=== PATIENT | female | born 1950 | race Caucasian/White ===

== ENCOUNTER 2018-06-12 18:31 | Inpatient (IN) | payer MEDICARE, OTHER ==
[~2018-06-12] VITALS: Ht 177.8 cm; Wt 100.0 kg
[~2018-06-12 18:31] MED LIST: AMLO2.5T2 PO; ASPI-611 PO; EZET1TAB PO; FLUT1DIS4 INH; INSU200I SQ; LACT1CAP73 PO; LANTUS SQ; LISI-600 PO; METO-395 PO; MULT-1179 PO; NORT25CA PO; OMEG1CAP PO; SPIIN INH; SYN0.088T PO
[2018-06-12] MEDS ORDERED: morphine 4 MG/ML inj SYRINge IV ONE (19:30)
[2018-06-12] MEDS ORDERED: ondansetron/PF 4mg/2ml inj IV ONE (19:30)
[2018-06-12 19:37] LABS: BASOPHILS % (AUTO) 0 % (0-1); EOSINOPHILS # (AUTO) 0.3 X10'3 (0-0.9); EOSINOPHILS % (AUTO) 2.4 % (0-6); HEMATOCRIT 44.3 % (35.0-45.0); HEMOGLOBIN 14.3 g/dl (12.0-16.0); LYMPHOCYTES % (AUTO) 14.4 % (21-51); MEAN CORPUSCULAR HEMOGLOBIN 26.2 PG (27.0-31.0); MEAN CORPUSCULAR HGB CONC 32.2 % (33.0-36.5); MEAN CORPUSCULAR VOLUME 81.3 FL (78-98); MEAN PLATELET VOLUME 10.6 FL (7.4-10.4); MONOCYTES # (AUTO) 0.4 X10'3 (0-0.9); MONOCYTES % (AUTO) 3.1 % (2-12); NEUTROPHILS # (AUTO) 11.4 X10'3 (1.8-7.7); NEUTROPHILS % (AUTO) 80.1 % (42-75); PLATELET COUNT 318 X10'3 (140-440); RED BLOOD COUNT 5.45 X10'6 (4.20-5.60); RED CELL DISTRIBUTION WIDTH 14.9 % (11.5-14.5); WHITE BLOOD COUNT 14.2 X10'3 (4.5-11.0)
[2018-06-12 19:48] LABS: PARTIAL THROMBOPLASTIN TIME 24 SECONDS (22-32)
[2018-06-12 19:53] LABS: ALANINE AMINOTRANSFERASE 28 U/L (12-78); ALBUMIN 2.7 G/DL (3.4-5.0); ALBUMIN/GLOBULIN RATIO 0.6 (1.1-1.5); ALKALINE PHOSPHATASE 76 IU/L (46-116); ANION GAP 11 (8-16); ASPARTATE AMINO TRANSFERASE 25 U/L (10-37); BILIRUBIN,TOTAL 0.3 MG/DL (0.1-1.0); BLOOD UREA NITROGEN 13 MG/DL (7-18); BUN/CREATININE RATIO 16.3 (6.6-38.0); CALCIUM 8.9 MG/DL (8.5-10.1); CHLORIDE 101 MMOL/L (99-107); GLUCOSE 127 MG/DL (70-104); POTASSIUM 3.4 MMOL/L (3.5-5.1); SODIUM 143 MMOL/L (135-145); TOTAL CARBON DIOXIDE 30.6 MMOL/L (24-32); TOTAL PROTEIN 6.9 G/DL (6.4-8.2); eGFR 71 ML/MIN
[2018-06-12] MEDS ORDERED: potassium Cl 20 mEq SR tablet PO PRN (20:40)
[2018-06-12] MEDS ORDERED: HYDROcodone/acetaminophen 5mg/325mg tablet PO PRN (20:40)
[2018-06-12] MEDS ORDERED: dextrose ORAL solution 15 GM/59 ML bottle PO PRN ×2 (20:40)
[2018-06-12] MEDS ORDERED: morphine 10mg/ml inj. IV PRN (20:40)
[2018-06-12] MEDS ORDERED: glucagon, human recombinant 1mg kit SUBCUT PRN (20:40)
[2018-06-12] MEDS ORDERED: dextrose 50%-water 50ml dispensing syringe IV PRN ×2 (20:40)
[2018-06-12] MEDS ORDERED: ondansetron/PF 4mg/2ml inj IV PRN (20:40)
[2018-06-12] MEDS ORDERED: morphine 2 MG/ML inj. syringe IV PRN (20:40)
[2018-06-12] MEDS ORDERED: acetaminophen 325mg tablet PO PRN ×2 (20:40)
[2018-06-12] MEDS ORDERED: MESSAGE TO PHARMACY PO ONE (20:40)
[2018-06-12] MEDS ORDERED: magnesium hydroxide 30ml (MOM) UD suspension PO PRN (20:40)
[2018-06-12] MEDS ORDERED: mag hydrox/Alum hydrox/simeth 30ml oral suspension PO PRN (20:40)
[2018-06-12] MEDS ORDERED: potassium Cl 40MEQ/NS 500ml 500 ML IV PRN ×2 (20:40)
[2018-06-12 20:55] LABS: CLARITY,URINE SLIGHTLY CLOUDY (Clear); COLOR,URINE YELLOW (Yellow); GLUCOSE, URINE NEGATIVE (Neg); KETONES,URINE NEGATIVE (Neg); LEUKOCYTE ESTERASE ,URINE NEGATIVE (Neg); NITRITES, URINE POSITIVE (Neg); OCCULT BLOOD,URINE NEGATIVE (Neg); PROTEIN,URINE NEGATIVE (Neg); UROBILINOGEN,URINE 0.2 E.U/dL (0.2-1.0)
[2018-06-12 21:00] LABS: UA COLLECTION TYPE FOLEY CATH
[2018-06-12] MEDS ORDERED: temazepam 15mg capsule PO PRN (21:00)
[2018-06-12 21:05] LABS: BACTERIA,URINE 3+ /HPF (Neg); RBC,URINE NONE SEEN /HPF (0-2)
[2018-06-12 21:06] LABS: SQUAMOUS EPITHELIAL CELL,UR FEW /LPF (FEW); WBC CLUMPS,URINE FEW /HPF (NEGATIVE)
[2018-06-12 21:07] LABS: HEMOGLOBIN A1C 6.4 % (4.5-6.2)
[2018-06-12 21:22] LABS: LARGE PLATELETS FEW; PLATELET ESTIMATE NORMAL
[2018-06-12 22:00] VITALS: BP 148/78
[2018-06-12] MEDS: ipratropium 0.5 MG/2.5ML nebule IH SCH (22:20)
[2018-06-12] MEDS: insulin glargine (Lantus) pen - multi-dose SQ SCH (22:44)
[2018-06-12] MEDS: nortriptyline 25mg capsule PO SCH (23:00)
[2018-06-12] MEDS: normal saline 1000ml 1,000 ML IV SCH (23:16)
[2018-06-13] MEDS: HYDROcodone/acetaminophen 10/325mg tab PO PRN ×5 (00:55→22:25)
[2018-06-13] MEDS: ipratropium 0.5 MG/2.5ML nebule IH SCH ×4 (02:26→20:18)
[2018-06-13 05:33] LABS: BASOPHILS # (AUTO) 0.1 X10'3 (0-0.2); BASOPHILS % (AUTO) 0.4 % (0-1); EOSINOPHILS # (AUTO) 0.4 X10'3 (0-0.9); EOSINOPHILS % (AUTO) 2.5 % (0-6); HEMATOCRIT 44.2 % (35.0-45.0); HEMOGLOBIN 14.1 g/dl (12.0-16.0); LYMPHOCYTES # (AUTO) 2.4 X10'3 (1.1-4.8); LYMPHOCYTES % (AUTO) 14.4 % (21-51); MEAN CORPUSCULAR HEMOGLOBIN 25.9 PG (27.0-31.0); MEAN CORPUSCULAR HGB CONC 31.9 % (33.0-36.5); MEAN CORPUSCULAR VOLUME 81.3 FL (78-98); MEAN PLATELET VOLUME 10.8 FL (7.4-10.4); MONOCYTES # (AUTO) 0.7 X10'3 (0-0.9); MONOCYTES % (AUTO) 4.2 % (2-12); NEUTROPHILS # (AUTO) 13.2 X10'3 (1.8-7.7); NEUTROPHILS % (AUTO) 78.5 % (42-75); PLATELET COUNT 320 X10'3 (140-440); RED BLOOD COUNT 5.44 X10'6 (4.20-5.60); RED CELL DISTRIBUTION WIDTH 14.9 % (11.5-14.5); WHITE BLOOD COUNT 16.8 X10'3 (4.5-11.0)
[2018-06-13 05:37] LABS: ALBUMIN 2.6 G/DL (3.4-5.0); ANION GAP 9 (8-16); BLOOD UREA NITROGEN 9 MG/DL (7-18); BUN/CREATININE RATIO 12.5 (6.6-38.0); CALCIUM 8.7 MG/DL (8.5-10.1); CHLORIDE 100 MMOL/L (99-107); CREATININE 0.72 MG/DL (0.40-0.90); GLUCOSE 173 MG/DL (70-104); POTASSIUM 3.4 MMOL/L (3.5-5.1); SODIUM 141 MMOL/L (135-145); TOTAL CARBON DIOXIDE 32.1 MMOL/L (24-32); eGFR 81 ML/MIN
[2018-06-13] MEDS: normal saline 1000ml 1,000 ML IV SCH ×2 (06:39→17:22)
[2018-06-13] MEDS: albuterol 2.5 MG/3 ML nebule NEB SCH ×4 (06:45→20:19)
[2018-06-13 07:09] VITALS: BP 149/81
[2018-06-13] MEDS: levoTHYROXINE 175mcg tablet PO SCH ×2 (07:24→08:05)
[2018-06-13] MEDS ORDERED: lisinopril 20mg tablet PO SCH (08:00)
[2018-06-13] MEDS ORDERED: amLODIPine 2.5mg tablet PO SCH (08:00)
[2018-06-13] MEDS ORDERED: metoprolol succinate 25mg (24-HOUR) SR. Tablet PO SCH (08:00)
[2018-06-13] MEDS: BUDESONIDE 0.25 MG/2 ML AMPUL.NEB IH SCH ×2 (08:00→20:18)
[2018-06-13] MEDS ORDERED: non-formulary drug (Fluticasone/Salmeterol (Advair 250-50 Diskus) 1 PUFFS) INH SCH (08:00)
[2018-06-13] MEDS ORDERED: levoTHYROXINE 88mcg tablet PO SCH (08:00)
[2018-06-13] MEDS: amLODIPine 5mg tablet PO SCH (08:04)
[2018-06-13] MEDS: omega-3 acid ethyl esters 1GM capsule PO SCH (08:04)
[2018-06-13] MEDS: multivitamins, therapeutics tablet PO SCH (08:05)
[2018-06-13] MEDS: HYDROchlorothiazide 25mg tablet PO SCH (08:05)
[2018-06-13] MEDS: metoprolol succinate 25mg (24-HOUR) SR. Tablet PO SCH (08:05)
[2018-06-13] MEDS: aspirin 81mg tab.chew PO SCH (08:05)
[2018-06-13] MEDS: lactobacillus rhamnosus 10,000 MMU CELLS/CAPSULE PO SCH (08:05)
[2018-06-13] MEDS: K and/or MAG REPLACEMENT MC SCH (08:10)
[2018-06-13] MEDS: potassium Cl 20 mEq SR tablet PO PRN ×3 (08:11→20:49)
[2018-06-13] MEDS ORDERED: pneumococcal 23-VAL P-sac vacc 25 mcg/0.5ml vial IMVAC ONE (10:00)
[2018-06-13] MEDS: insulin Lispro (HumaLOG) vial - multi-dose SQ SCH ×2 (10:29→18:33)
[2018-06-13] MEDS ORDERED: levoFLOXACIN-Levaquin 750MG/D5 150 ML IV STA (13:25)
[2018-06-13] MEDS: heparin, porcine 5000 units/ml vial SQ SCH (16:00)
[2018-06-13 18:00] VITALS: BP 147/78
[2018-06-13] MEDS: nortriptyline 25mg capsule PO SCH (20:49)
[2018-06-13] MEDS: insulin glargine (Lantus) pen - multi-dose SQ SCH (20:52)
[2018-06-13 22:00] VITALS: BP 150/64
[2018-06-14] VITALS (19 sets, daily range): BP systolic 98–161; BP diastolic 46–77
[2018-06-14] MEDS: ipratropium 0.5 MG/2.5ML nebule IH SCH (02:50)
[2018-06-14] MEDS: HYDROcodone/acetaminophen 10/325mg tab PO PRN ×2 (03:04→12:10)
[2018-06-14] MEDS: normal saline 1000ml 1,000 ML IV SCH ×3 (03:04→23:18)
[2018-06-14 07:06] LABS: ALBUMIN 2.3 G/DL (3.4-5.0); ANION GAP 14 (8-16); BLOOD UREA NITROGEN 8 MG/DL (7-18); BUN/CREATININE RATIO 12.5 (6.6-38.0); CALCIUM 8.3 MG/DL (8.5-10.1); CHLORIDE 99 MMOL/L (99-107); CREATININE 0.64 MG/DL (0.40-0.90); GLUCOSE 215 MG/DL (70-104); SODIUM 139 MMOL/L (135-145); TOTAL CARBON DIOXIDE 26.3 MMOL/L (24-32); eGFR > 90 ML/MIN
[2018-06-14 07:15] LABS: BASOPHILS % (AUTO) 0.2 % (0-1); EOSINOPHILS # (AUTO) 0.4 X10'3 (0-0.9); EOSINOPHILS % (AUTO) 2.6 % (0-6); HEMATOCRIT 44.8 % (35.0-45.0); HEMOGLOBIN 14.5 g/dl (12.0-16.0); LYMPHOCYTES # (AUTO) 2.1 X10'3 (1.1-4.8); MEAN CORPUSCULAR HEMOGLOBIN 26.3 PG (27.0-31.0); MEAN CORPUSCULAR HGB CONC 32.3 % (33.0-36.5); MEAN CORPUSCULAR VOLUME 81.3 FL (78-98); MEAN PLATELET VOLUME 11.6 FL (7.4-10.4); MONOCYTES % (AUTO) 6.3 % (2-12); NEUTROPHILS # (AUTO) 12.8 X10'3 (1.8-7.7); NEUTROPHILS % (AUTO) 77.9 % (42-75); PLATELET COUNT 294 X10'3 (140-440); RED BLOOD COUNT 5.51 X10'6 (4.20-5.60); RED CELL DISTRIBUTION WIDTH 14.8 % (11.5-14.5); WHITE BLOOD COUNT 16.5 X10'3 (4.5-11.0)
[2018-06-14] MEDS: heparin, porcine 5000 units/ml vial SQ SCH ×3 (07:49→16:00)
[2018-06-14] MEDS: K and/or MAG REPLACEMENT MC SCH (08:00)
[2018-06-14] MEDS: omega-3 acid ethyl esters 1GM capsule PO SCH (08:00)
[2018-06-14] MEDS: multivitamins, therapeutics tablet PO SCH (08:00)
[2018-06-14] MEDS: lactobacillus rhamnosus 10,000 MMU CELLS/CAPSULE PO SCH (08:00)
[2018-06-14] MEDS: aspirin 81mg tab.chew PO SCH (08:00)
[2018-06-14 08:03] LABS: LARGE PLATELETS FEW; PLATELET ESTIMATE NORMAL
[2018-06-14] MEDS ORDERED: albuterol 2.5 MG/3 ML nebule ONE (08:21)
[2018-06-14] MEDS: BUDESONIDE 0.25 MG/2 ML AMPUL.NEB IH SCH ×2 (08:22→19:56)
[2018-06-14] MEDS: amLODIPine 5mg tablet PO SCH (08:49)
[2018-06-14] MEDS: HYDROchlorothiazide 25mg tablet PO SCH (08:49)
[2018-06-14] MEDS: levoTHYROXINE 175mcg tablet PO SCH (08:50)
[2018-06-14] MEDS: metoprolol succinate 25mg (24-HOUR) SR. Tablet PO SCH (08:50)
[2018-06-14] MEDS: insulin Lispro (HumaLOG) vial - multi-dose SQ SCH ×3 (09:09→19:22)
[2018-06-14] MEDS ORDERED: ringers solution, lacted 1,000 ML IV SCH (11:34)
[2018-06-14] MEDS ORDERED: ondansetron/PF 4mg/2ml inj IV PRN ×2 (11:35→18:05)
[2018-06-14] MEDS ORDERED: proCHLORperazine 10 MG/2 ml inj IV PRN (11:35)
[2018-06-14] MEDS ORDERED: meperidine/PF 25mg/ml syringe IV PRN ×3 (11:35)
[2018-06-14] MEDS ORDERED: morphine 4 MG/ML inj SYRINge IV PRN ×2 (11:35)
[2018-06-14] MEDS ORDERED: ceFAZolin 1GM/D5W- ADD-VANTAGE 50 ML IV ONE (12:00)
[2018-06-14] MEDS: levoFLOXACIN 750MG TABLET PO SCH (12:10)
[2018-06-14] MEDS: ipratropium/albuterol 3ml nebule NEB SCH ×3 (12:34→19:52)
[2018-06-14] MEDS ORDERED: vancomycin 1,000mg inj ONE (13:44)
[2018-06-14] MEDS ORDERED: insulin regular, human 10 units/0.1 ml syringe IV ONE (16:25)
[2018-06-14] MEDS ORDERED: BUPIVAcaine/dex-water/PF 7.5 mg/ml 2ml ampul ONE (16:27)
[2018-06-14] MEDS ORDERED: MIDAZolam 5mg/5ml vial ONE (16:29)
[2018-06-14] MEDS ORDERED: fentaNYL/PF 50MCG/1 ML 2ML syringe ONE (16:29)
[2018-06-14] MEDS ORDERED: morphine /PF 1mg/ml 10ml inj. ONE (16:30)
[2018-06-14] MEDS ORDERED: propofol inj 20 ML IV ONE (16:59)
[2018-06-14] MEDS ORDERED: naloxone 2mg/2ml inj 2 MG in normal saline 500ml IV soln 500 ML IV PRN (18:04)
[2018-06-14] MEDS ORDERED: diphenhydrAMINE 50 mg/ml inj IV PRN (18:05)
[2018-06-14] MEDS: nortriptyline 25mg capsule PO SCH (20:52)
[2018-06-14] MEDS: insulin glargine (Lantus) pen - multi-dose SQ SCH (21:05)
[2018-06-15] VITALS (7 sets, daily range): BP systolic 105–133; BP diastolic 53–72
[2018-06-15] MEDS: cefazolin/dext.iso 2gm/100ml 100 ML IV SCH ×3 (00:16→16:40)
[2018-06-15] MEDS: heparin, porcine 5000 units/ml vial SQ SCH ×3 (00:17→16:42)
[2018-06-15] MEDS: HYDROcodone/acetaminophen 10/325mg tab PO PRN ×3 (05:34→20:42)
[2018-06-15 06:22] LABS: BASOPHILS # (AUTO) 0.2 X10'3 (0-0.2); BASOPHILS % (AUTO) 1.2 % (0-1); EOSINOPHILS # (AUTO) 0.3 X10'3 (0-0.9); EOSINOPHILS % (AUTO) 1.8 % (0-6); HEMOGLOBIN 13.1 g/dl (12.0-16.0); LYMPHOCYTES # (AUTO) 1.8 X10'3 (1.1-4.8); LYMPHOCYTES % (AUTO) 10.4 % (21-51); MEAN CORPUSCULAR HGB CONC 32.1 % (33.0-36.5); MEAN CORPUSCULAR VOLUME 81.1 FL (78-98); MEAN PLATELET VOLUME 10.7 FL (7.4-10.4); MONOCYTES % (AUTO) 5.8 % (2-12); NEUTROPHILS # (AUTO) 13.6 X10'3 (1.8-7.7); NEUTROPHILS % (AUTO) 80.8 % (42-75); PLATELET COUNT 259 X10'3 (140-440); RED BLOOD COUNT 5.05 X10'6 (4.20-5.60); RED CELL DISTRIBUTION WIDTH 14.8 % (11.5-14.5); WHITE BLOOD COUNT 16.8 X10'3 (4.5-11.0)
[2018-06-15 06:28] LABS: ALBUMIN 1.9 G/DL (3.4-5.0); ANION GAP 11 (8-16); BLOOD UREA NITROGEN 10 MG/DL (7-18); BUN/CREATININE RATIO 16.1 (6.6-38.0); CALCIUM 7.8 MG/DL (8.5-10.1); CHLORIDE 101 MMOL/L (99-107); CREATININE 0.62 MG/DL (0.40-0.90); GLUCOSE 162 MG/DL (70-104); POTASSIUM 3.5 MMOL/L (3.5-5.1); SODIUM 137 MMOL/L (135-145); TOTAL CARBON DIOXIDE 25.5 MMOL/L (24-32); eGFR > 90 ML/MIN
[2018-06-15 06:54] LABS: PLATELET ESTIMATE NORMAL
[2018-06-15 06:55] LABS: LARGE PLATELETS FEW
[2018-06-15] MEDS: omega-3 acid ethyl esters 1GM capsule PO SCH (07:51)
[2018-06-15] MEDS: aspirin 81mg tab.chew PO SCH (07:51)
[2018-06-15] MEDS: lactobacillus rhamnosus 10,000 MMU CELLS/CAPSULE PO SCH (07:51)
[2018-06-15] MEDS: levoTHYROXINE 175mcg tablet PO SCH (07:51)
[2018-06-15] MEDS: multivitamins, therapeutics tablet PO SCH (07:51)
[2018-06-15] MEDS: HYDROchlorothiazide 25mg tablet PO SCH (07:51)
[2018-06-15] MEDS: amLODIPine 5mg tablet PO SCH (07:51)
[2018-06-15] MEDS: metoprolol succinate 25mg (24-HOUR) SR. Tablet PO SCH (07:52)
[2018-06-15] MEDS: K and/or MAG REPLACEMENT MC SCH (08:06)
[2018-06-15] MEDS: ipratropium/albuterol 3ml nebule NEB SCH ×4 (08:14→21:00)
[2018-06-15] MEDS: BUDESONIDE 0.25 MG/2 ML AMPUL.NEB IH SCH ×2 (08:14→21:00)
[2018-06-15] MEDS: insulin Lispro (HumaLOG) vial - multi-dose SQ SCH ×3 (08:46→19:00)
[2018-06-15] MEDS: levoFLOXACIN 750MG TABLET PO SCH (10:47)
[2018-06-15] MEDS: lactose-reduced food (Ensure High Protein) 237ml bottle PO SCH ×2 (12:54→18:00)
[2018-06-15] MEDS: normal saline 1000ml 1,000 ML IV SCH ×2 (16:37→18:39)
[2018-06-15] MEDS: nortriptyline 25mg capsule PO SCH (20:42)
[2018-06-15] MEDS: insulin glargine (Lantus) pen - multi-dose SQ SCH (21:27)
[2018-06-16] MEDS: cefazolin/dext.iso 2gm/100ml 100 ML IV SCH ×2 (00:02→08:02)
[2018-06-16] MEDS: heparin, porcine 5000 units/ml vial SQ SCH ×2 (00:03→08:01)
[2018-06-16] MEDS: normal saline 1000ml 1,000 ML IV SCH ×2 (02:00→15:11)
[2018-06-16 05:00] VITALS: BP 120/63
[2018-06-16 05:46] LABS: ALBUMIN 1.6 G/DL (3.4-5.0); ANION GAP 10 (8-16); BLOOD UREA NITROGEN 11 MG/DL (7-18); BUN/CREATININE RATIO 15.7 (6.6-38.0); CALCIUM 8.4 MG/DL (8.5-10.1); CHLORIDE 101 MMOL/L (99-107); GLUCOSE 79 MG/DL (70-104); SODIUM 138 MMOL/L (135-145); TOTAL CARBON DIOXIDE 26.7 MMOL/L (24-32); eGFR 83 ML/MIN
[2018-06-16] MEDS: HYDROcodone/acetaminophen 10/325mg tab PO PRN (05:50)
[2018-06-16 06:02] LABS: HEMATOCRIT 38.4 % (35.0-45.0); HEMOGLOBIN 12.9 g/dl (12.0-16.0); MEAN CORPUSCULAR HEMOGLOBIN 27.1 PG (27.0-31.0); MEAN CORPUSCULAR VOLUME 80.6 FL (78-98); RED BLOOD COUNT 4.77 X10'6 (4.20-5.60); WHITE BLOOD COUNT 19.6 X10'3 (4.5-11.0)
[2018-06-16 06:03] LABS: BASOPHILS % (AUTO) 1.2 % (0-1); EOSINOPHILS % (AUTO) 0.7 % (0-6); LYMPHOCYTES % (AUTO) 10.1 % (21-51); MEAN CORPUSCULAR HGB CONC 33.7 % (33.0-36.5); MEAN PLATELET VOLUME 11.7 FL (7.4-10.4); MONOCYTES % (AUTO) 6.4 % (2-12); NEUTROPHILS % (AUTO) 81.6 % (42-75); PLATELET COUNT 247 X10'3 (140-440); RED CELL DISTRIBUTION WIDTH 13.6 % (11.5-14.5)
[2018-06-16 06:04] LABS: BASOPHILS # (AUTO) 0.2 X10'3 (0-0.2); EOSINOPHILS # (AUTO) 0.1 X10'3 (0-0.9); MONOCYTES # (AUTO) 1.3 X10'3 (0-0.9)
[2018-06-16 06:30] LABS: POTASSIUM 2.9 MMOL/L (3.5-5.1)
[2018-06-16] MEDS ORDERED: potassium Cl 40MEQ/NS 500ml 500 ML IV PRN ×2 (06:45)
[2018-06-16] MEDS ORDERED: potassium Cl 20 mEq SR tablet PO PRN (06:45)
[2018-06-16] MEDS: BUDESONIDE 0.25 MG/2 ML AMPUL.NEB IH SCH (07:23)
[2018-06-16] MEDS: ipratropium/albuterol 3ml nebule NEB SCH ×3 (07:24→16:02)
[2018-06-16 07:30] VITALS: BP 127/69
[2018-06-16 07:35] LABS: MAGNESIUM 1.6 MG/DL (1.5-2.4)
[2018-06-16] MEDS ORDERED: lactobacillus rhamnosus 10,000 MMU CELLS/CAPSULE PO SCH (07:53)
[2018-06-16] MEDS: aspirin 81mg tab.chew PO SCH (07:59)
[2018-06-16] MEDS: omega-3 acid ethyl esters 1GM capsule PO SCH (07:59)
[2018-06-16] MEDS: HYDROchlorothiazide 25mg tablet PO SCH (07:59)
[2018-06-16] MEDS: K and/or MAG REPLACEMENT MC SCH (08:00)
[2018-06-16] MEDS: lactose-reduced food (Ensure High Protein) 237ml bottle PO SCH ×2 (08:00→13:33)
[2018-06-16] MEDS: levoTHYROXINE 175mcg tablet PO SCH (08:00)
[2018-06-16] MEDS: amLODIPine 5mg tablet PO SCH (08:00)
[2018-06-16] MEDS: metoprolol succinate 25mg (24-HOUR) SR. Tablet PO SCH (08:00)
[2018-06-16] MEDS: multivitamins, therapeutics tablet PO SCH (08:00)
[2018-06-16] MEDS: potassium Cl 20 mEq SR tablet PO PRN ×2 (08:02→11:57)
[2018-06-16] MEDS: insulin Lispro (HumaLOG) vial - multi-dose SQ SCH ×2 (09:00→13:39)
[2018-06-16 10:00] VITALS: BP 118/49
[2018-06-16 11:06] VITALS: BP 122/52
[2018-06-16] MEDS: levoFLOXACIN 750MG TABLET PO SCH (11:23)
[2018-06-16] MEDS ORDERED: LEVO750T46 PO (13:03)
[2018-06-16] MEDS ORDERED: METO-395 PO (13:03)
[2018-06-16] MEDS ORDERED: [UNRECOGNIZED DRUG - CODE] PO (13:03)
== END 2018-06-16 16:20 | DRG 470 ==
LOC: ER 18:31 → ED HOLD 20:39 → ORTHO 4S 22:00
PROVIDERS: ADMIT Hospitalist; ATTEND Family Medicine
PROC: 0SRS01A Replacement of Left Hip Joint, Femoral Surface with Metal Synthetic Substitute, Uncemented, Open Approach (ICD-10-PCS; principal; 2018-06-14 16:12)
DX: S72.012A Unspecified intracapsular fracture of left femur, initial encounter for closed fracture (principal); N39.0 Urinary tract infection, site not specified; E44.1 Mild protein-calorie malnutrition; W01.0XXA Fall on same level from slipping, tripping and stumbling without subsequent striking against object, initial encounter; E87.6 Hypokalemia; I11.9 Hypertensive heart disease without heart failure; E11.9 Type 2 diabetes mellitus without complications; K21.9 Gastro-esophageal reflux disease without esophagitis; B96.20 Unspecified Escherichia coli [E. coli] as the cause of diseases classified elsewhere; E03.9 Hypothyroidism, unspecified; J44.9 Chronic obstructive pulmonary disease, unspecified; Z82.3 Family history of stroke; Z82.5 Family history of asthma and other chronic lower respiratory diseases; Z83.3 Family history of diabetes mellitus; Z87.891 Personal history of nicotine dependence; Z23 Encounter for immunization; Z79.4 Long term (current) use of insulin; Y93.89 Activity, other specified; Y92.090 Kitchen in other non-institutional residence as the place of occurrence of the external cause; Y99.8 Other external cause status; Z88.1 Allergy status to other antibiotic agents; Z98.51 Tubal ligation status; Z68.31 Body mass index [BMI] 31.0-31.9, adult; Z79.899 Other long term (current) drug therapy; Z79.82 Long term (current) use of aspirin
CPT/HCPCS: 36415; 70450; 71045; 72170; 73502; 80048; 80053; 81001; 82948; 83036; 83735; 84443; 84484; 85025; 85610; 85730; 86885; 86900; 86901; 87070; 87077; 87088; 87186; 93005; 93306; 94640; 94760; 96374; 96375; 97110; 97116; 97161; 97530; 99285; A4315; A6455; A7000; C1776; J0690; J1644; J1815; J1956; J2250; J2270; J2274; J2405; J2704; J3010; J3370; J3490; J7030; J7120

== ENCOUNTER 2023-03-09 12:41 | Day surgery (SDC) | payer MEDICARE, OTHER ==
[2023-03-05 13:18] LABS: BASOPHILS # (AUTO) 0.1 X10'3 (0-0.2); BASOPHILS % (AUTO) 0.8 % (0-1); EOSINOPHILS # (AUTO) 0.2 X10'3 (0-0.9); EOSINOPHILS % (AUTO) 1.9 % (0-6); HEMATOCRIT 43.8 % (35.0-45.0); HEMOGLOBIN 14.2 g/dl (12.0-16.0); LYMPHOCYTES # (AUTO) 2.2 X10'3 (1.1-4.8); LYMPHOCYTES % (AUTO) 18.1 % (21-51); MEAN CORPUSCULAR HGB CONC 32.5 g/dL (33.0-36.5); MONOCYTES # (AUTO) 0.9 X10'3 (0-0.9); MONOCYTES % (AUTO) 7.4 % (2-12); NEUTROPHILS # (AUTO) 8.6 X10'3 (1.8-7.7); NEUTROPHILS % (AUTO) 71.8 % (42-75); PLATELET COUNT 299 X10'3 (140-440); RED BLOOD COUNT 5.28 X10'6 (4.20-5.60); RED CELL DISTRIBUTION WIDTH 15.1 % (11.5-14.5); WHITE BLOOD COUNT 11.9 X10'3 (4.5-11.0)
[2023-03-05 13:29] LABS: ALBUMIN 3.2 G/DL (3.4-5.0); ANION GAP 13 (8-16); BLOOD UREA NITROGEN 18 MG/DL (7-18); BUN/CREATININE RATIO 17.8 (10.0-20.0); CALCIUM 9.2 MG/DL (8.5-10.1); CHLORIDE 101 MMOL/L (99-107); CREATININE 1.01 MG/DL (0.40-0.90); GLUCOSE 258 MG/DL (70-104); POTASSIUM 3.6 MMOL/L (3.5-5.1); SODIUM 143 MMOL/L (135-145); TOTAL CARBON DIOXIDE 29.1 MMOL/L (24-32); eGFR 54 ML/MIN
[2023-03-05 13:31] LABS: APTT 29 SECONDS (22-32)
[2023-03-09] VITALS (16 sets, daily range): BP systolic 108–170; BP diastolic 54–99
[~2023-03-09] VITALS: Ht 177.8 cm; Wt 96.8 kg
[~2023-03-09 12:41] MED LIST changes: +ALB0.5UD IH; -AMLO2.5T2 PO; -ASPI-611 PO; +ASPI81TA52 PO; +EZET-82 PO; -EZET1TAB PO; +FEBU40TA PO; +HYDR25TA5 PO; -LISI-600 PO; +LISI20TA28 PO; -METO-395 PO; +METO50TA7 PO; +NABU-139 PO; -NORT25CA PO; +NORT50CA5 PO; -OMEG1CAP PO; +OMEG1CAP61 PO
[2023-03-09] MEDS ORDERED: normal saline 1000ml 1,000 ML IV SCH (13:00)
[2023-03-09] MEDS ORDERED: MIDAZolam 1mg/ml 10ml vial IV ONE (13:00)
[2023-03-09] MEDS ORDERED: fentaNYL/PF 50MCG/1 ML 2ML syringe IV ONE (13:00)
[2023-03-09] MEDS ORDERED: POTA8TAB69 PO (14:22)
[2023-03-09] MEDS ORDERED: EZET10TA6 PO (14:22)
[2023-03-09] MEDS ORDERED: OMEP20CA16 PO (14:22)
[2023-03-09] MEDS ORDERED: LEVO75TA7 PO (14:22)
[2023-03-09] MEDS ORDERED: AMLO10TA13 PO (14:22)
[2023-03-09] MEDS ORDERED: ATOR20TA66 PO (14:22)
[2023-03-09] MEDS ORDERED: LOSA1TAB36 PO (14:22)
[2023-03-09] MEDS ORDERED: GLIP5TAB13 PO (14:22)
== END 2023-03-09 15:35 | disposition home or self-care (01) ==
LOC: SSTAY O 12:41
PROVIDERS: ATTEND Student in an Organized Health Care Education/Training Program
DX: I48.91 Unspecified atrial fibrillation (principal); I10 Essential (primary) hypertension; E78.5 Hyperlipidemia, unspecified; J44.9 Chronic obstructive pulmonary disease, unspecified; E11.9 Type 2 diabetes mellitus without complications; E03.9 Hypothyroidism, unspecified; Z79.899 Other long term (current) drug therapy; Z88.1 Allergy status to other antibiotic agents; Z79.84 Long term (current) use of oral hypoglycemic drugs
CPT/HCPCS: 36415; 80048; 82948; 85025; 85610; 85730; 92960; 93005; J7030; A4620

== ENCOUNTER 2023-07-20 20:50 | Emergency (ER) | payer MEDICARE, OTHER ==
[~2023-07-20] VITALS: Ht 177.8 cm; Wt 100.0 kg
[~2023-07-20 20:50] MED LIST changes: +AMLO10TA13 PO; +ATOR20TA66 PO; -EZET-82 PO; +EZET10TA6 PO; -FLUT1DIS4 INH; +GLIP5TAB13 PO; -HYDR25TA5 PO; +LEVO75TA7 PO; +LOSA1TAB36 PO; +OMEP20CA16 PO; +POTA8TAB69 PO; -SPIIN INH; -SYN0.088T PO
[2023-07-20 21:55] LABS: BASOPHILS # (AUTO) 0.1 X10'3 (0-0.2); BASOPHILS % (AUTO) 0.8 % (0-1); EOSINOPHILS # (AUTO) 0.1 X10'3 (0-0.9); EOSINOPHILS % (AUTO) 0.8 % (0-6); HEMATOCRIT 43.3 % (35.0-45.0); HEMOGLOBIN 14.1 g/dl (12.0-16.0); LYMPHOCYTES # (AUTO) 1.8 X10'3 (1.1-4.8); MEAN CORPUSCULAR HEMOGLOBIN 26.5 PG (27.0-31.0); MEAN CORPUSCULAR HGB CONC 32.5 g/dL (33.0-36.5); MEAN CORPUSCULAR VOLUME 81.5 FL (78-98); MEAN PLATELET VOLUME 10.3 FL (7.4-10.4); MONOCYTES # (AUTO) 1.1 X10'3 (0-0.9); MONOCYTES % (AUTO) 9.1 % (2-12); NEUTROPHILS # (AUTO) 8.7 X10'3 (1.8-7.7); NEUTROPHILS % (AUTO) 74.3 % (42-75); PLATELET COUNT 286 X10'3 (140-440); RED BLOOD COUNT 5.31 X10'6 (4.20-5.60); RED CELL DISTRIBUTION WIDTH 14.5 % (11.5-14.5); WHITE BLOOD COUNT 11.7 X10'3 (4.5-11.0)
[2023-07-20 22:14] LABS: ALANINE AMINOTRANSFERASE 19 U/L (12-78); ALBUMIN 3.2 G/DL (3.4-5.0); ALBUMIN/GLOBULIN RATIO 0.8 (1.1-1.5); ALKALINE PHOSPHATASE 105 IU/L (46-116); ANION GAP 7 (8-16); ASPARTATE AMINO TRANSFERASE 17 U/L (10-37); BILIRUBIN,TOTAL 0.7 MG/DL (0.1-1.0); BLOOD UREA NITROGEN 12 MG/DL (7-18); BUN/CREATININE RATIO 12.8 (10.0-20.0); CALCIUM 9.2 MG/DL (8.5-10.1); CHLORIDE 95 MMOL/L (99-107); CREATININE 0.94 MG/DL (0.40-0.90); LIPASE 33 U/L (16-77); POTASSIUM 3.4 MMOL/L (3.5-5.1); SODIUM 134 MMOL/L (135-145); TOTAL CARBON DIOXIDE 31.6 MMOL/L (24-32); TOTAL PROTEIN 7.4 G/DL (6.4-8.2); eCRCL 58 ML/MIN; eGFR 58 ML/MIN
[2023-07-20 22:35] LABS: GLUCOSE 401 MG/DL (70-104)
[2023-07-20] MEDS ORDERED: furosemide 40mg/4ml inj IV ONE (22:35)
[2023-07-20] MEDS ORDERED: methylPREDNISolone sod succ 125mg/2ml vial IV ONE (22:35)
[2023-07-20] MEDS ORDERED: albuterol 2.5 MG/3 ML nebule NEB ONE (22:35)
[2023-07-20] MEDS ORDERED: azithromycin/NS 500mg/250ml 250 ML IV ONE (22:35)
[2023-07-20] MEDS ORDERED: CefTRIAXone 2gm/D5W 50ml BAG 50 ML IV ONE (22:35)
[2023-07-20 23:01] VITALS: PULSE 62; RESP 14; O2SAT 100
[2023-07-20 23:11] VITALS: PULSE 59; RESP 14; O2SAT 100
[2023-07-21] MEDS ORDERED: insulin Lispro (HumaLOG) vial - multi-dose SQ ONE (00:20)
[2023-07-21] MEDS ORDERED: PRED20TA PO (01:09)
[2023-07-21] MEDS ORDERED: AZI25OT PO ×2 (01:09)
[2023-07-21] MEDS ORDERED: ALBU8HFA PO (01:09)
--- NOTE | 2023-07-21 04:24 | NUR ---
0425: Second attempt at calling patient's nephew, Ramon, without getting ahold of him. Voicemail left for him to call back. Patient unable to give any other numbers of people to call who might be able to come pick her up. Charge Nurse aware.
--- NOTE | 2023-07-21 05:15 | NUR ---
PATIENTS NEPHEW NAME EVAN." PHONE # PATIENTS RIDE HOME CALLED MULTIPLE TIMES CHARGE NURSE AWARE
[2023-07-21] MEDS ORDERED: DOXY-356 PO (06:46)
[2023-07-21 06:57] VITALS: BP 179/82; PULSE 57; RESP 18; TEMP 98.3; O2SAT 99
== END 2023-07-21 07:01 | disposition home or self-care (01) ==
LOC: ER 20:51
DX: J44.1 Chronic obstructive pulmonary disease with (acute) exacerbation (principal); Z20.822 Contact with and (suspected) exposure to COVID-19; R05.9 Cough, unspecified; E11.65 Type 2 diabetes mellitus with hyperglycemia; I10 Essential (primary) hypertension; E03.9 Hypothyroidism, unspecified; Z91.041 Radiographic dye allergy status; Z79.899 Other long term (current) drug therapy; Z79.82 Long term (current) use of aspirin; Z79.84 Long term (current) use of oral hypoglycemic drugs
CPT/HCPCS: 36415; 71045; 80053; 83605; 83690; 83880; 84484; 85025; 87040; 87811; 93005; 94640; 96365; 96366; 96367; 96375; 99285; J0456; J0696; J1815; J1940; J2930; 94760

== ENCOUNTER 2024-06-29 13:30 | Inpatient (IN) | payer MEDICARE, OTHER ==
[~2024-06-29] VITALS: Ht 177.8 cm; Wt 95.1 kg
[~2024-06-29 13:30] MED LIST changes: -AMLO10TA13 PO; +APIX5TAB3 PO; -ASPI81TA52 PO; -FEBU40TA PO; +FURO20TA4 PO; -GLIP5TAB13 PO; +GLIP5TAB23 PO; -LOSA1TAB36 PO; -METO50TA7 PO; +MONT-40 PO
[2024-06-29 18:32] LABS: BASOPHILS % (AUTO) 0.2 % (0-1); EOSINOPHILS % (AUTO) 0.4 % (0-6); HEMATOCRIT 30.4 % (35.0-45.0); HEMOGLOBIN 9.4 g/dl (12.0-16.0); LYMPHOCYTES # (AUTO) 1.4 X10'3 (1.1-4.8); LYMPHOCYTES % (AUTO) 12.2 % (21-51); MEAN CORPUSCULAR HEMOGLOBIN 22.7 PG (27.0-31.0); MEAN CORPUSCULAR HGB CONC 31.1 g/dL (33.0-36.5); MEAN CORPUSCULAR VOLUME 72.9 FL (78-98); MEAN PLATELET VOLUME 9.9 FL (7.4-10.4); MONOCYTES # (AUTO) 0.9 X10'3 (0-0.9); MONOCYTES % (AUTO) 7.8 % (2-12); NEUTROPHILS % (AUTO) 79.4 % (42-75); PLATELET COUNT 272 X10'3 (140-440); RED BLOOD COUNT 4.16 X10'6 (4.20-5.60); RED CELL DISTRIBUTION WIDTH 20.9 % (11.5-14.5); WHITE BLOOD COUNT 11.3 X10'3 (4.5-11.0)
[2024-06-29 18:43] LABS: ALBUMIN 2.3 G/DL (3.4-5.0); ANION GAP 11 (8-16); BLOOD UREA NITROGEN 33 MG/DL (7-18); BUN/CREATININE RATIO 23.4 (10.0-20.0); CALCIUM 7.4 MG/DL (8.5-10.1); CHLORIDE 100 MMOL/L (99-107); CREATININE 1.41 MG/DL (0.40-0.90); GLUCOSE 59 MG/DL (70-104); POTASSIUM 4.8 MMOL/L (3.5-5.1); PRO BRAIN NATRIURETIC PEPTIDE 15294 PG/ML (0-125); SODIUM 140 MMOL/L (135-145); TOTAL CARBON DIOXIDE 29.1 MMOL/L (24-32); eCRCL 38 ML/MIN; eGFR 36 ML/MIN
[2024-06-29 19:27] LABS: ANISOCYTOSIS 3+; MICROCYTOSIS 1+; PLATELET ESTIMATE NORMAL
[2024-06-29 19:28] LABS: STOMATOCYTES 1+
[2024-06-29 19:29] LABS: ELLIPTOCYTES FEW; SCHISTOCYTES FEW
[2024-06-29] MEDS: vancomycin/NS 1 GM ADD-VANTAGE 250 ML IV ONE (19:34)
[2024-06-29] MEDS: normal saline 1000ml 1,000 ML IV ONE (19:34)
[2024-06-29] MEDS ORDERED: ondansetron/PF 4mg/2ml inj IV PRN (19:35)
[2024-06-29] MEDS ORDERED: potassium Cl 40MEQ/1/2NS 520ml 520 ML IV PRN (19:35)
[2024-06-29] MEDS ORDERED: magnesium sulf-water 4G/100mL 100 ML IV PRN (19:35)
[2024-06-29] MEDS ORDERED: magnesium sulf-water 2g/50mL 50 ML IV PRN (19:35)
[2024-06-29] MEDS ORDERED: magnesium Cl slow-release 64mg tablet PO PRN (19:35)
[2024-06-29] MEDS ORDERED: potassium Cl 20 mEq SR tablet PO PRN (19:35)
[2024-06-29] MEDS ORDERED: azithromycin/NS 500mg/250ml 250 ML IV SCH (19:40)
[2024-06-29] MEDS ORDERED: CefTRIAXone/D5W-Rocephin 1gm 50 ML IV ONE (19:40)
[2024-06-29] MEDS: K and/or MAG REPLACEMENT MC SCH (20:00)
[2024-06-29] MEDS ORDERED: furosemide 10 MG/1 ML 10ml inj IV SCH (20:00)
[2024-06-29] MEDS: methylPREDNISolone sod succ 125mg/2ml vial IV ONE (20:30)
[2024-06-29] MEDS: levoFLOXACIN-Levaquin 500mg/D5 100 ML IV SCH (20:30)
[2024-06-29 20:46] LABS: CHOL/HDL RATIO 1.9 (0.00-4.99); CHOLESTEROL 93 MG/DL (0-200); HDL CHOLESTEROL 48 MG/DL (35-60); LDL CHOLESTEROL 33 MG/DL (50-100); TRIGLYCERIDES 88 MG/DL (20-135)
[2024-06-29] MEDS ORDERED: glucagon, human recombinant 1mg kit SUBCUT PRN (20:55)
[2024-06-29] MEDS ORDERED: dextrose 50%-water 50ml dispensing syringe IV PRN ×2 (20:55)
[2024-06-29] MEDS ORDERED: DEXTROSE 15 GM of carb/4 tabs (each vial/BOTTLE has 4 tablets) PO PRN ×2 (20:55)
[2024-06-29] MEDS: INSULIN LISPRO 100 UNIT/ML INSULN.PEN MULTI-DOSE SQ SCH (21:00)
[2024-06-29] MEDS: insulin glargine (Lantus) pen - multi-dose SQ SCH (21:00)
[2024-06-29 21:53] LABS: FREE T4 (FREE THYROXINE) 1.32 NG/DL (0.73-1.40); THYROID STIMULATING HORMONE 34.99 ulU/ml (0.34-4.50)
[2024-06-29] MEDS: furosemide 10 MG/1 ML 10ml inj IV ONE (22:42)
[2024-06-29] MEDS: ipratropium/albuterol 3ml nebule NEB SCH (23:25)
[2024-06-29 23:27] VITALS: PULSE 78; RESP 20; O2SAT 100
[2024-06-29 23:35] VITALS: PULSE 73; RESP 20
[2024-06-30] VITALS (18 sets, daily range): BP systolic 108–129; BP diastolic 59–69; PULSE 78–93; RESP 14–20; TEMP 97.3–97.8; O2SAT 91–100
[2024-06-30] MEDS ORDERED: nortriptyline 25mg capsule PO PRN (00:30)
[2024-06-30] MEDS: levoTHYROXINE 75mcg tablet PO SCH (07:43)
[2024-06-30] MEDS: piperacillin/tazo 3.375gm/50ml 50 ML IV SCH (08:00)
[2024-06-30 08:27] LABS: BASOPHILS % (AUTO) 0.2 % (0-1); EOSINOPHILS % (AUTO) 0 % (0-6); HEMATOCRIT 29.3 % (35.0-45.0); LYMPHOCYTES # (AUTO) 0.5 X10'3 (1.1-4.8); LYMPHOCYTES % (AUTO) 5.1 % (21-51); MEAN CORPUSCULAR HEMOGLOBIN 22.4 PG (27.0-31.0); MEAN CORPUSCULAR HGB CONC 30.7 g/dL (33.0-36.5); MEAN CORPUSCULAR VOLUME 72.8 FL (78-98); MEAN PLATELET VOLUME 9.9 FL (7.4-10.4); MONOCYTES # (AUTO) 0.4 X10'3 (0-0.9); NEUTROPHILS # (AUTO) 8.2 X10'3 (1.8-7.7); NEUTROPHILS % (AUTO) 90.7 % (42-75); PLATELET COUNT 274 X10'3 (140-440); RED BLOOD COUNT 4.03 X10'6 (4.20-5.60); RED CELL DISTRIBUTION WIDTH 20.9 % (11.5-14.5)
[2024-06-30 08:57] LABS: ALANINE AMINOTRANSFERASE 13 U/L (12-78); ALBUMIN 2.3 G/DL (3.4-5.0); ALBUMIN/GLOBULIN RATIO 0.5 (1.1-1.5); ALKALINE PHOSPHATASE 60 IU/L (46-116); ANION GAP 12 (8-16); ASPARTATE AMINO TRANSFERASE 15 U/L (10-37); BILIRUBIN,TOTAL 0.6 MG/DL (0.1-1.0); BLOOD UREA NITROGEN 31 MG/DL (7-18); BUN/CREATININE RATIO 22.6 (10.0-20.0); CALCIUM 7.3 MG/DL (8.5-10.1); CHLORIDE 101 MMOL/L (99-107); CREATININE 1.37 MG/DL (0.40-0.90); GLUCOSE 146 MG/DL (70-104); POTASSIUM 3.8 MMOL/L (3.5-5.1); SODIUM 141 MMOL/L (135-145); THYROID STIMULATING HORMONE 9.19 ulU/ml (0.34-4.50); TOTAL PROTEIN 6.6 G/DL (6.4-8.2); eCRCL 39 ML/MIN; eGFR 38 ML/MIN
[2024-06-30] MEDS ORDERED: METF-900 PO (09:32)
[2024-06-30] MEDS ORDERED: LORA10TA7 PO (09:32)
[2024-06-30] MEDS ORDERED: DULA0.75 SUBCUT (09:32)
[2024-06-30] MEDS: doxycycline inj 100 MG in normal saline 100ml IV soln 100 ML IV SCH (09:43)
[2024-06-30] MEDS: methylPREDNISolone sod succ/PF 40mg inj. IV SCH (09:43)
[2024-06-30] MEDS: ezetimibe 10mg tablet PO SCH (09:44)
[2024-06-30] MEDS: atorvastatin 20mg tablet PO SCH (09:44)
[2024-06-30] MEDS: amiodarone 200mg tablet PO SCH (09:44)
[2024-06-30] MEDS: lisinopril 20mg tablet PO SCH (09:44)
[2024-06-30] MEDS: carVEDilol 3.125mg tablet PO SCH (09:44)
[2024-06-30] MEDS: furosemide 20 MG/2 ML vial IV SCH (09:44)
[2024-06-30] MEDS: apixaban 5mg tablet PO SCH (09:45)
[2024-06-30 12:16] LABS: PLATELET ESTIMATE NORMAL
[2024-06-30 12:17] LABS: ANISOCYTOSIS 3+; ELLIPTOCYTES FEW; HYPOCHROMASIA 1+; MICROCYTOSIS 1+
[2024-06-30 12:18] LABS: SCHISTOCYTES FEW; STOMATOCYTES FEW
[2024-06-30] MEDS: pantoprazole 40mg Tablet.DR PO SCH (21:06)
[2024-07-01] VITALS (13 sets, daily range): BP systolic 102–132; BP diastolic 63–76; PULSE 79–89; RESP 16–20; TEMP 97.6–98.2; O2SAT 94–100
[2024-07-01 07:15] LABS: BASOPHILS % (AUTO) 0.2 % (0-1); EOSINOPHILS % (AUTO) 0 % (0-6); HEMATOCRIT 27.8 % (35.0-45.0); HEMOGLOBIN 8.5 g/dl (12.0-16.0); LYMPHOCYTES # (AUTO) 0.7 X10'3 (1.1-4.8); MEAN CORPUSCULAR HEMOGLOBIN 22.4 PG (27.0-31.0); MEAN CORPUSCULAR HGB CONC 30.7 g/dL (33.0-36.5); MONOCYTES # (AUTO) 0.5 X10'3 (0-0.9); MONOCYTES % (AUTO) 6.6 % (2-12); NEUTROPHILS % (AUTO) 85.2 % (42-75); PLATELET COUNT 272 X10'3 (140-440); RED CELL DISTRIBUTION WIDTH 20.6 % (11.5-14.5); WHITE BLOOD COUNT 8.2 X10'3 (4.5-11.0)
[2024-07-01 07:22] LABS: ALANINE AMINOTRANSFERASE 12 U/L (12-78); ALBUMIN 1.9 G/DL (3.4-5.0); ALBUMIN/GLOBULIN RATIO 0.5 (1.1-1.5); ALKALINE PHOSPHATASE 43 IU/L (46-116); ANION GAP 7 (8-16); ASPARTATE AMINO TRANSFERASE 15 U/L (10-37); BILIRUBIN,TOTAL 0.4 MG/DL (0.1-1.0); BLOOD UREA NITROGEN 30 MG/DL (7-18); BUN/CREATININE RATIO 22.9 (10.0-20.0); CHLORIDE 102 MMOL/L (99-107); CREATININE 1.31 MG/DL (0.40-0.90); GLUCOSE 100 MG/DL (70-104); POTASSIUM 3.3 MMOL/L (3.5-5.1); SODIUM 139 MMOL/L (135-145); TOTAL CARBON DIOXIDE 30.2 MMOL/L (24-32); eCRCL 41 ML/MIN; eGFR 40 ML/MIN
[2024-07-01] MEDS: spironolactone 25 MG tablet PO SCH (08:35)
[2024-07-01] MEDS: EMPAGLIFLOZIN 10 MG TABLET PO SCH (08:36)
[2024-07-01] MEDS: potassium Cl 20 mEq SR tablet PO PRN (09:32)
[2024-07-01] MEDS ORDERED: EMPA10TA PO (13:01)
[2024-07-01] MEDS ORDERED: COR3.125T PO (13:01)
[2024-07-01] MEDS ORDERED: SPIR25TA PO (13:01)
[2024-07-01] MEDS ORDERED: FURO20TA4 PO (13:01)
[2024-07-01] MEDS ORDERED: LEVO-65 PO (13:01)
[2024-07-01] MEDS ORDERED: FERR-29 PO (13:06)
[2024-07-01] MEDS ORDERED: PRED10TA23 PO (13:06)
[2024-07-01] MEDS: iron sucrose complex injection 200 MG in normal saline 100ml IV soln 100 ML IV ONE (14:29)
== END 2024-07-01 16:22 | disposition home or self-care (01) | DRG 602 ==
LOC: ER 13:31 → ED HOLD 19:39 → PCU 3S 06-30 08:13
PROVIDERS: ADMIT Internal Medicine Sleep Medicine; ATTEND Internal Medicine
DX: L03.115 Cellulitis of right lower limb (principal); I50.23 Acute on chronic systolic (congestive) heart failure; N17.0 Acute kidney failure with tubular necrosis; J96.01 Acute respiratory failure with hypoxia; J44.1 Chronic obstructive pulmonary disease with (acute) exacerbation; I11.0 Hypertensive heart disease with heart failure; E03.9 Hypothyroidism, unspecified; E78.00 Pure hypercholesterolemia, unspecified; E11.9 Type 2 diabetes mellitus without complications; I25.10 Atherosclerotic heart disease of native coronary artery without angina pectoris; Z20.822 Contact with and (suspected) exposure to COVID-19; Z98.51 Tubal ligation status; Z86.73 Personal history of transient ischemic attack (TIA), and cerebral infarction without residual deficits; Z79.84 Long term (current) use of oral hypoglycemic drugs; Z88.1 Allergy status to other antibiotic agents; Z79.01 Long term (current) use of anticoagulants; Z79.899 Other long term (current) drug therapy; I25.2 Old myocardial infarction
CPT/HCPCS: 36415; 71046; 80048; 80053; 80061; 82948; 83036; 83605; 83880; 84145; 84439; 84443; 85008; 85025; 87040; 87081; 87811; 93005; 94640; 94664; 94668; 94760; 96365; 97110; 97116; 97162; 99285; A6222; A6223; A6253; A6446; A6449; G0378; J1756; J1815; J1940; J1956; J2543; J2919; J3370; J3490; J7030; J7040

== ENCOUNTER 2024-07-09 20:44 | Inpatient (IN) | payer MEDICARE, OTHER ==
[~2024-07-09] VITALS: Ht 177.8 cm; Wt 83.2 kg
[~2024-07-09 20:44] MED LIST changes: +CARV3.1232 PO; +DULA0.75 SUBCUT; +EMPA10TA PO; +FERR-29 PO; -GLIP5TAB23 PO; +LEVO-65 PO; +LORA10TA7 PO; +METF-900 PO; -NABU-139 PO; +PRED10TA23 PO; +SPIR25TA PO
[2024-07-09 22:05] LABS: BASOPHILS % (AUTO) 0.1 % (0-1); EOSINOPHILS % (AUTO) 0 % (0-6); LYMPHOCYTES # (AUTO) 0.4 X10'3 (1.1-4.8); LYMPHOCYTES % (AUTO) 2.5 % (21-51); MONOCYTES # (AUTO) 0.3 X10'3 (0-0.9); MONOCYTES % (AUTO) 2.3 % (2-12); NEUTROPHILS # (AUTO) 13.7 X10'3 (1.8-7.7); NEUTROPHILS % (AUTO) 95.1 % (42-75); PLATELET COUNT 288 X10'3 (140-440); WHITE BLOOD COUNT 14.4 X10'3 (4.5-11.0)
[2024-07-09] MEDS ORDERED: acetaminophen 325mg tablet PO PRN (22:05)
[2024-07-09] MEDS ORDERED: ondansetron/PF 4mg/2ml inj IV PRN (22:05)
[2024-07-09 22:14] LABS: INR 1.4 INR; PROTHROMBIN TIME 14.6 SECONDS (9.0-12.0)
[2024-07-09 22:20] LABS: ALANINE AMINOTRANSFERASE 23 U/L (12-78); ALBUMIN 2.7 G/DL (3.4-5.0); ALBUMIN/GLOBULIN RATIO 0.8 (1.1-1.5); ALKALINE PHOSPHATASE 39 IU/L (46-116); ANION GAP 14 (8-16); ASPARTATE AMINO TRANSFERASE 20 U/L (10-37); BILIRUBIN,TOTAL 0.4 MG/DL (0.1-1.0); BLOOD UREA NITROGEN 39 MG/DL (7-18); BUN/CREATININE RATIO 22.9 (10.0-20.0); CALCIUM 7.5 MG/DL (8.5-10.1); CHLORIDE 99 MMOL/L (99-107); GLUCOSE 153 MG/DL (70-104); POTASSIUM 5.4 MMOL/L (3.5-5.1); SODIUM 138 MMOL/L (135-145); TOTAL CARBON DIOXIDE 24.6 MMOL/L (24-32); TOTAL PROTEIN 6.3 G/DL (6.4-8.2); eCRCL 31 ML/MIN; eGFR 29 ML/MIN
[2024-07-09 22:22] LABS: HEMATOCRIT 30.6 % (35.0-45.0); HEMOGLOBIN 9.7 g/dl (12.0-16.0); MEAN CORPUSCULAR HEMOGLOBIN 23.3 PG (27.0-31.0); MEAN CORPUSCULAR VOLUME 73.7 FL (78-98); RED BLOOD COUNT 4.15 X10'6 (4.20-5.60)
[2024-07-09 22:23] LABS: MEAN CORPUSCULAR HGB CONC 31.6 g/dL (33.0-36.5); MEAN PLATELET VOLUME 9.5 FL (7.4-10.4); RED CELL DISTRIBUTION WIDTH 20.4 % (11.5-14.5)
[2024-07-09 22:26] LABS: PRO BRAIN NATRIURETIC PEPTIDE 29988 PG/ML (0-125)
[2024-07-09] MEDS: CefTRIAXone 2gm/D5W 50ml BAG 50 ML IV ONE (22:45)
[2024-07-09 22:59] LABS: ACANTHOCYTES 1+; ANISOCYTOSIS 3+; ELLIPTOCYTES 1+; MICROCYTOSIS 1+; PLATELET ESTIMATE NORMAL; POIKILOCYTOSIS 1+; TOTAL CELLS COUNTED 100
[2024-07-09 23:01] LABS: LARGE PLATELETS FEW; POLYCHROMASIA FEW; TARGET CELLS FEW
[2024-07-09] MEDS ORDERED: PERFLUTREN PROTEIN-A MICROSPHR (Optison) 0.22 MG/ML 3ML VIAL IV PRN (23:05)
[2024-07-09 23:49] LABS: THYROID STIMULATING HORMONE 17.43 ulU/ml (0.34-4.50)
[2024-07-10] MEDS: normal saline 1000ml 1,000 ML IV ONE
[2024-07-10] MEDS ORDERED: glucagon, human recombinant 1mg kit SUBCUT PRN (00:05)
[2024-07-10] MEDS ORDERED: dextrose 50%-water 50ml dispensing syringe IV PRN ×2 (00:05)
[2024-07-10] MEDS: normal saline 500ml IV soln 500 ML IV STA (01:07)
[2024-07-10] MEDS: VANCOMYCIN 1GM 200ML H20 (PEG) 200 ML IV ONE (02:36)
[2024-07-10 03:32] LABS: BASOPHILS % (AUTO) 0.2 % (0-1); EOSINOPHILS % (AUTO) 0 % (0-6); HEMATOCRIT 30.6 % (35.0-45.0); HEMOGLOBIN 9.3 g/dl (12.0-16.0); LYMPHOCYTES # (AUTO) 0.8 X10'3 (1.1-4.8); LYMPHOCYTES % (AUTO) 4.4 % (21-51); MEAN CORPUSCULAR HEMOGLOBIN 22.7 PG (27.0-31.0); MEAN CORPUSCULAR HGB CONC 30.3 g/dL (33.0-36.5); MEAN PLATELET VOLUME 10.2 FL (7.4-10.4); MONOCYTES % (AUTO) 5.4 % (2-12); NEUTROPHILS # (AUTO) 16.8 X10'3 (1.8-7.7); PLATELET COUNT 259 X10'3 (140-440); RED BLOOD COUNT 4.08 X10'6 (4.20-5.60); RED CELL DISTRIBUTION WIDTH 21.3 % (11.5-14.5); WHITE BLOOD COUNT 18.7 X10'3 (4.5-11.0)
[2024-07-10 03:46] LABS: ALBUMIN 2.2 G/DL (3.4-5.0); ANION GAP 9 (8-16); BLOOD UREA NITROGEN 36 MG/DL (7-18); BUN/CREATININE RATIO 24.5 (10.0-20.0); CALCIUM 6.8 MG/DL (8.5-10.1); CHLORIDE 102 MMOL/L (99-107); CREATININE 1.47 MG/DL (0.40-0.90); GLUCOSE 92 MG/DL (70-104); POTASSIUM 4.6 MMOL/L (3.5-5.1); SODIUM 140 MMOL/L (135-145); TOTAL CARBON DIOXIDE 28.8 MMOL/L (24-32); eCRCL 36 ML/MIN; eGFR 35 ML/MIN
[2024-07-10] MEDS: INSULIN LISPRO 100 UNIT/ML INSULN.PEN MULTI-DOSE SQ SCH ×2 (07:00→08:00)
[2024-07-10] MEDS: EMPAGLIFLOZIN 10 MG TABLET PO SCH (08:00)
[2024-07-10] MEDS: levoTHYROXINE 75mcg tablet PO SCH (08:00)
[2024-07-10] MEDS ORDERED: levoTHYROXINE 75mcg tablet PO SCH (08:00)
[2024-07-10] MEDS: carVEDilol 3.125mg tablet PO SCH (09:16)
[2024-07-10] MEDS: atorvastatin 20mg tablet PO SCH (09:17)
[2024-07-10] MEDS: apixaban 5mg tablet PO SCH (09:17)
[2024-07-10] MEDS: DEXTROSE 15 GM of carb/4 tabs (each vial/BOTTLE has 4 tablets) PO PRN ×2 (09:20→16:54)
[2024-07-10] MEDS: ezetimibe 10mg tablet PO SCH (10:59)
[2024-07-10] MEDS: metoprolol succinate 25mg (24-HOUR) SR. Tablet PO SCH (10:59)
[2024-07-10] MEDS: VANCOMYCIN 1GM 200ML H20 (PEG) 200 ML IV SCH (12:55)
[2024-07-10] MEDS: furosemide 40mg/4ml inj IV ONE (13:18)
[2024-07-10] MEDS: ferrous sulfate 325mg tablet PO ONE (14:16)
[2024-07-10 14:41] LABS: BILIRUBIN,URINE NEGATIVE (Neg); CLARITY,URINE SLIGHTLY CLOUDY (Clear); COLOR,URINE YELLOW (Yellow); GLUCOSE, URINE 250 mg/dl (Neg); KETONES,URINE NEGATIVE (Neg); LEUKOCYTE ESTERASE ,URINE NEGATIVE (Neg); NITRITES, URINE NEGATIVE (Neg); OCCULT BLOOD,URINE MODERATE (Neg); PH,URINE 5.5 (4.8-8.0); PROTEIN,URINE NEGATIVE (Neg); UROBILINOGEN,URINE 0.2 E.U/dL (0.2-1.0)
[2024-07-10 14:44] LABS: UA COLLECTION TYPE VOIDED
[2024-07-10 14:47] LABS: RBC,URINE 20-50 /HPF (0-2)
[2024-07-10 14:48] LABS: BACTERIA,URINE FEW /HPF (Neg); MUCUS STRANDS NONE SEEN /LPF (Neg); SQUAMOUS EPITHELIAL CELL,UR FEW /LPF (FEW); YEAST MANY /HPF (NEGATIVE)
[2024-07-10 15:45] VITALS: BP 107/48; PULSE 95; RESP 14; TEMP 98.3; O2SAT 100
[2024-07-10 18:00] VITALS: BP 103/52; PULSE 87; RESP 18; TEMP 97.7; O2SAT 92
[2024-07-10] MEDS: furosemide 40mg/4ml inj IV SCH (19:58)
[2024-07-10] MEDS: sacubitril/valsartan 24mg-26mg tablet PO SCH (19:58)
[2024-07-10 20:00] VITALS: RESP 18; O2SAT 92
[2024-07-10] MEDS: insulin glargine (Lantus) pen - multi-dose SQ SCH (21:00)
[2024-07-10 22:00] VITALS: BP_SYST 97; BP_SYST 99; BP_DIAS 46; BP_DIAS 55; PULSE 72; PULSE 76; RESP 16; TEMP 97.6; O2SAT 99
[2024-07-11] VITALS (11 sets, daily range): BP systolic 95–109; BP diastolic 44–57; PULSE 71–82; RESP 16–20; TEMP 96.7–97.4; O2SAT 90–100
[2024-07-11 06:07] LABS: BASOPHILS % (AUTO) 0.1 % (0-1); EOSINOPHILS # (AUTO) 0.1 X10'3 (0-0.9); EOSINOPHILS % (AUTO) 0.6 % (0-6); LYMPHOCYTES # (AUTO) 1.4 X10'3 (1.1-4.8); LYMPHOCYTES % (AUTO) 11.2 % (21-51); MEAN PLATELET VOLUME 9.7 FL (7.4-10.4); MONOCYTES # (AUTO) 1.1 X10'3 (0-0.9); MONOCYTES % (AUTO) 8.3 % (2-12); NEUTROPHILS # (AUTO) 10.3 X10'3 (1.8-7.7); NEUTROPHILS % (AUTO) 79.8 % (42-75); PLATELET COUNT 261 X10'3 (140-440); WHITE BLOOD COUNT 12.8 X10'3 (4.5-11.0)
[2024-07-11 06:31] LABS: HEMOGLOBIN 9.7 g/dl (12.0-16.0); MEAN CORPUSCULAR HGB CONC 31.3 g/dL (33.0-36.5); MEAN CORPUSCULAR VOLUME 73.3 FL (78-98); RED BLOOD COUNT 4.22 X10'6 (4.20-5.60); RED CELL DISTRIBUTION WIDTH 20.3 % (11.5-14.5)
[2024-07-11 06:43] LABS: ALBUMIN 2.2 G/DL (3.4-5.0); ANION GAP 8 (8-16); BLOOD UREA NITROGEN 28 MG/DL (7-18); CALCIUM 7.3 MG/DL (8.5-10.1); CHLORIDE 100 MMOL/L (99-107); CREATININE 1.22 MG/DL (0.40-0.90); FERRITIN 68 NG/ML (8-252); GLUCOSE 93 MG/DL (70-104); POTASSIUM 3.8 MMOL/L (3.5-5.1); SODIUM 140 MMOL/L (135-145); TOTAL CARBON DIOXIDE 31.6 MMOL/L (24-32); eCRCL 44 ML/MIN; eGFR 43 ML/MIN
[2024-07-11 06:45] LABS: % IRON SATURATION 21 % (11-46); IRON 40 UG/DL (49-151); TOTAL IRON BINDING CAPACITY 195 UG/DL (259-388)
[2024-07-11 07:22] LABS: ANISOCYTOSIS 3+; MICROCYTOSIS 1+; PLATELET ESTIMATE NORMAL
[2024-07-11 07:23] LABS: ACANTHOCYTES FEW; ELLIPTOCYTES FEW; HYPOCHROMASIA 1+; STOMATOCYTES FEW
[2024-07-11] MEDS: ferrous sulfate 325mg tablet PO SCH (09:21)
[2024-07-11] MEDS: levoTHYROXINE 75mcg tablet PO SCH (09:21)
[2024-07-11] MEDS: VANCOMYCIN 1GM 200ML H20 (PEG) 200 ML IV SCH (13:50)
[2024-07-11] MEDS: ipratropium/albuterol 3ml nebule NEB SCH (15:31)
[2024-07-11] MEDS: furosemide 40mg/4ml inj IV SCH (16:12)
[2024-07-11] MEDS: CefTRIAXone 2gm/D5W 50ml BAG 50 ML IV SCH (17:40)
[2024-07-12] VITALS (14 sets, daily range): BP systolic 85–133; BP diastolic 42–62; PULSE 52–78; RESP 16–18; TEMP 97.8–97.9; O2SAT 93–100
[2024-07-12 06:51] LABS: BASOPHILS % (AUTO) 0.1 % (0-1); EOSINOPHILS # (AUTO) 0.1 X10'3 (0-0.9); HEMATOCRIT 33.6 % (35.0-45.0); HEMOGLOBIN 10.5 g/dl (12.0-16.0); LYMPHOCYTES # (AUTO) 1.2 X10'3 (1.1-4.8); LYMPHOCYTES % (AUTO) 9.3 % (21-51); MEAN CORPUSCULAR HEMOGLOBIN 23.3 PG (27.0-31.0); MEAN CORPUSCULAR HGB CONC 31.1 g/dL (33.0-36.5); MEAN CORPUSCULAR VOLUME 74.9 FL (78-98); MEAN PLATELET VOLUME 10.4 FL (7.4-10.4); MONOCYTES # (AUTO) 1.1 X10'3 (0-0.9); MONOCYTES % (AUTO) 8.5 % (2-12); NEUTROPHILS # (AUTO) 10.1 X10'3 (1.8-7.7); NEUTROPHILS % (AUTO) 81.1 % (42-75); PLATELET COUNT 265 X10'3 (140-440); RED BLOOD COUNT 4.49 X10'6 (4.20-5.60); RED CELL DISTRIBUTION WIDTH 21.7 % (11.5-14.5); WHITE BLOOD COUNT 12.4 X10'3 (4.5-11.0)
[2024-07-12 07:11] LABS: ALBUMIN 2.3 G/DL (3.4-5.0); ANION GAP 9 (8-16); BLOOD UREA NITROGEN 27 MG/DL (7-18); BUN/CREATININE RATIO 21.6 (10.0-20.0); CALCIUM 7.2 MG/DL (8.5-10.1); CHLORIDE 99 MMOL/L (99-107); CREATININE 1.25 MG/DL (0.40-0.90); GLUCOSE 158 MG/DL (70-104); POTASSIUM 3.4 MMOL/L (3.5-5.1); SODIUM 140 MMOL/L (135-145); TOTAL CARBON DIOXIDE 32.4 MMOL/L (24-32); eCRCL 43 ML/MIN; eGFR 42 ML/MIN
[2024-07-12] MEDS ORDERED: potassium Cl 20 mEq SR tablet PO PRN (10:15)
[2024-07-12] MEDS ORDERED: potassium Cl 40MEQ/1/2NS 520ml 520 ML IV PRN (10:15)
[2024-07-12] MEDS: potassium Cl 20 mEq SR tablet PO PRN (10:52)
[2024-07-12] MEDS ORDERED: METO-395 PO (11:06)
[2024-07-12] MEDS ORDERED: POTA10CA95 PO (11:06)
[2024-07-12] MEDS ORDERED: FURO-150 PO (11:06)
[2024-07-12] MEDS ORDERED: SACU1TAB PO (11:06)
[2024-07-12] MEDS ORDERED: CEFD300C3 PO (11:19)
[2024-07-12] MEDS ORDERED: LINE600T14 PO (11:19)
[2024-07-12] MEDS ORDERED: K and/or MAG REPLACEMENT MC SCH (20:00)
[2024-07-13] MEDS ORDERED: VANCOMYCIN LEVEL IV ONE (12:30)
== END 2024-07-12 15:10 | DRG 682 ==
LOC: ER 20:44 → ED HOLD 22:26 → EDBEDREQ 07-10 13:48 → ORTHO 4S 07-10 14:45
PROVIDERS: ADMIT Internal Medicine Critical Care Medicine; ATTEND Nurse Practitioner Family
DX: N17.0 Acute kidney failure with tubular necrosis (principal); I50.23 Acute on chronic systolic (congestive) heart failure; I13.0 Hypertensive heart and chronic kidney disease with heart failure and stage 1 through stage 4 chronic kidney disease, or unspecified chronic kidney disease; L03.116 Cellulitis of left lower limb; J44.1 Chronic obstructive pulmonary disease with (acute) exacerbation; E87.20 Acidosis, unspecified; I48.91 Unspecified atrial fibrillation; D50.8 Other iron deficiency anemias; I25.10 Atherosclerotic heart disease of native coronary artery without angina pectoris; S81.802A Unspecified open wound, left lower leg, initial encounter; X58.XXXA Exposure to other specified factors, initial encounter; E03.9 Hypothyroidism, unspecified; E78.00 Pure hypercholesterolemia, unspecified; E11.22 Type 2 diabetes mellitus with diabetic chronic kidney disease; N18.9 Chronic kidney disease, unspecified; I25.2 Old myocardial infarction; Z79.01 Long term (current) use of anticoagulants; Z79.899 Other long term (current) drug therapy; Z79.4 Long term (current) use of insulin; Z79.84 Long term (current) use of oral hypoglycemic drugs; Z98.51 Tubal ligation status; Z99.81 Dependence on supplemental oxygen; Y93.89 Activity, other specified; Y92.89 Other specified places as the place of occurrence of the external cause; Y99.8 Other external cause status; Z91.148 Patient's other noncompliance with medication regimen for other reason; E87.5 Hyperkalemia
CPT/HCPCS: 36415; 70450; 71045; 80048; 80053; 81001; 82728; 82948; 83540; 83550; 83605; 83880; 84133; 84145; 84443; 85007; 85008; 85025; 85610; 85651; 87040; 87081; 87088; 93306; 94640; 94760; 97110; 97116; 97162; 99285; A6213; A6223; A6253; A6446; A6449; G0378; J0696; J1815; J1940; J3370; J3372; J7040

== ENCOUNTER 2025-05-23 12:57 | Outpatient (CLI) | payer MEDICARE, OTHER ==
[~2025-05-23 12:57] MED LIST changes: -CARV3.1232 PO; +CEFD300C3 PO; +COR3.125T PO; -LEVO-65 PO; +LINE600T14 PO; +METO-395 PO; -PRED10TA23 PO; +SACU1TAB PO
--- NOTE | 2025-05-23 14:54 | VASCULAR REPORT ---
BILATERAL Lower Extremity Arterial Duplex Date: 05/23/2025 01:08 PM Clinical History: Poor healing wound Comparison: None Technique: Duplex Doppler evaluation including color Doppler and spectral/pulsed waveform analysis of the lower extremity arteries was performed. Finding: InaRSaions Pain in legs. Poor healing wound right ankle. VELOCITY AND DOPPLER WAVEFORM ANALYSIS RIGHT cm/se Waveform Severity LEFT cm/se Waveform Severity c c dCFA 65.0 Multiphasic dCFA 128.8 Multiphasic Prof Fem 65.0 Multiphasic Prof Fem 57.3 Multiphasic Art. Art. Fem Art 276.4 Multiphasic Severe >80% Fem Art 220.8 Multiphasic Severe >80% Prox. Prox. Fem Art 147.6 Multiphasic Fem Art 66.0 Multiphasic Mid Mid. Fem Art 111.9 Multiphasic Fem Art 37.6 Multiphasic Dist. Dist. Pop Art(AK) 41.7 Multiphasic Pop Art(AK) 27.1 Multiphasic Pop Art(BK) 116.1 Multiphasic Mild 16-49% Pop Art(BK) 235.9 Multiphasic Severe>80% [employer]IAN Dist. 110.5 Multiphasic [employer] TECHNICIAN Dist. 45.8 Multiphasic Per Art Dist. 23.9 Multiphasic Per Art Dist. 25.6 Multiphasic ROBERTO Dist. 62.3 Multiphasic ROBERTO Dist. DPA DPA 57.7 Multiphasic CONCLUSION Significant calcified plaque noted throughout both legs. Stenosis is noted in the proximal right superficial femoral artery, possibly 80%. Mild stenosis noted at distal right popliteal artery, 16-49%. Also severe stenosis is noted in the proximal left superficial femoral artery, possibly 80%, and left distal popliteal artery, also approximately 80%. Waveforms are still multiphasic throughout both legs. Ankle-brachial index not performed due to wound.
== END 2025-05-23 23:59 | disposition home or self-care (01) ==
LOC: VAS 12:57
PROVIDERS: ATTEND Emergency Medicine
DX: I73.9 Peripheral vascular disease, unspecified (principal); I77.89 Other specified disorders of arteries and arterioles
CPT/HCPCS: 93925